=== PATIENT | female | born 1950 | race Caucasian/White ===

== ENCOUNTER → 2016-08-08 | Outpatient (CLI) | payer OTHER, MEDICARE ==
[~2016-08-08] MED LIST: BACK & BODY PA1 EACH PO; BACTRIM,SEPT1 TABLE1 PO; CARDIZEM CD,CA180 MG PO; COMPAZINE10 MG PO; COUMADIN6 MG PO; DILTIAZEM 24HR360 M1 PO; DULCOLAX10 MG PR; ELIQUIS5 MG PO; ENEMA133 M2 PR; LISINOPRIL10 MG PO; LISINOPRIL20 MG PO; LOVENOX120 MG/0.8 SC; MILK OF MAGNESI10 ML PO; NICOTINE PATCH1 EAC1 TD; SPIRIVA RESPIMAT4 GM IH; TRAMADOL HCL50 MG PO; TUBERSOL SQ; TYLENOL REGULA325 MG PO; VENTOLIN HFA18 GM IH
== END | disposition home or self-care (01) ==
LOC: RAD 08-05 13:00
DX: M51.17 Intervertebral disc disorders with radiculopathy, lumbosacral region (principal); M84.48XA Pathological fracture, other site, initial encounter for fracture
CPT/HCPCS: 72131

== ENCOUNTER 2016-08-22 12:28 | Emergency (ER) | payer OTHER, MEDICARE ==
[~2016-08-22] VITALS: Ht 162.6 cm; Wt 114.7 kg
[2016-08-22 13:44] LABS: INTER. NORMALIZED RATIO 1.1
[2016-08-22 21:05] VITALS: BP 112/74
== END 2016-08-22 21:06 | disposition home or self-care (01) ==
LOC: EME 12:28
PROVIDERS: Emergency Medicine
DX: T50.991A Poisoning by other drugs, medicaments and biological substances, accidental (unintentional), initial encounter (principal); C90.00 Multiple myeloma not having achieved remission; Z86.73 Personal history of transient ischemic attack (TIA), and cerebral infarction without residual deficits; Z87.891 Personal history of nicotine dependence
CPT/HCPCS: 80048; 85025 91; 85610; 85730; 93005; 99281; 99284; G0480

== ENCOUNTER 2017-05-02 18:07 | Inpatient (IN) | payer OTHER, MEDICARE ==
[~2017-05-02] VITALS: Ht 162.6 cm; Wt 106.0 kg
[2017-05-02 19:21] LABS: BASOPHIL COUNT 0.1 K/uL (0-0.1); EOSINOPHIL COUNT 0.4 K/uL (0-0.3); HEMATOCRIT 39.5 % (36.0-46.0); IMMATURE GRANULOCYTE (%) 0.5 % (0.0-0.7); MCH 30.8 PG (29.0-34.0); MCHC 32.4 G/DL (30.0-36.0); MEAN PLAT.VOLUME 9.9 uM^3 (9.5-12.4); MONOCYTE (%) 14.3 % (3-12); MONOCYTE COUNT 0.9 K/uL (0-0.8); NEUTROPHIL (%) 62.9 % (45-76); RBC DIS.WIDTH-CV 15.8 % (11.8-14.6); RBC DIS.WIDTH-SD 55.4 % (39-53); RED BLOOD COUNT 4.16 M/uL (3.80-5.20); WHITE BLOOD COUNT 6.4 K/uL (4.1-10.2)
[2017-05-02 19:31] LABS: PLATELET COUNT 163 K/uL (156-360)
[2017-05-02 19:33] LABS: PROTHROMBIN TIME 11.4 SEC (10.2-12.9)
[2017-05-02 19:38] LABS: CHLORIDE 108 mEq/L (99-109); POTASSIUM 3.9 mEq/L (3.7-5.4); SODIUM 143 mEq/L (136-147)
[2017-05-02 19:40] LABS: GLUCOSE 95 mg/dL (70-99)
[2017-05-02 19:42] LABS: ANION GAP 10 MEQ/L (2-14); TOTAL BILIRUBIN 0.3 mg/dL (0.0-1.0)
[2017-05-02 19:43] LABS: TROP-I INTERPRETATION NEGATIVE; TROPONIN-I < 0.01 ng/mL (0.0-0.30)
[2017-05-02 19:44] LABS: ALKALINE PHOSPHATASE 73 IU/L (3-129); GFR ESTIMATE (CALCULATED) > 59 mL/min/
[2017-05-02 19:45] LABS: UREA NITROGEN (BUN) 12 mg/dL (9-23)
[2017-05-02 19:46] LABS: DIRECT BILIRUBIN 0.1 mg/dL (0.0-0.3)
[2017-05-02] MEDS ORDERED: REVLIMID10 MG PO ×2 (21:50→21:52)
[2017-05-02] MEDS ORDERED: DIGOXIN125 MCG PO (21:51)
[2017-05-02] MEDS ORDERED: LISINOPRIL10 MG PO (21:51)
[2017-05-02 22:05] LABS: ADD MIUA? YES; BILIRUBIN NEGATIVE; BLOOD LARGE; COLOR STRAW ((YELLOW)); GLUCOSE (STRIP) NEGATIVE; KETONES NEGATIVE; LEUKOCYTES NEGATIVE; NITRITE NEGATIVE; PROTEIN (STRIP) NEGATIVE; SPECIFIC GRAVITY 1.012 (1.000-1.030); UROBILINOGEN 0.2 MG/DL (0.2-1.0)
[2017-05-02 22:10] LABS: BACTERIA NONE SEEN /HPF; EPITHELIAL CELLS RARE /HPF; MUCUS TRACE /LPF; RED BLOOD CELLS 15-20 /HPF (0-5); UCUL ADDED? NO; WHITE BLOOD CELLS 0-5 /HPF (0-5)
[2017-05-03 01:44] VITALS: BP 140/79
[2017-05-03 02:04] LABS: BICARBONATE 28.5 mEq/L (22-26); CARBOXY HGB 5.1 % (0-5); COMMENTS - BLOOD GASES C+; DEVICE NC; METHEMOGLOBIN 1.3 % (0-1.5); O2 FLOW 2 L/MIN; PCO2 46 mm Hg (35-45); PO2 73 mm Hg (80-100); SITE RR; TOTAL RESP RATE 20 resp/min
[2017-05-03 02:18] LABS: HDL CHOLESTEROL 41 MG/DL (Desirable>=50); LDL CHOLESTEROL 68 mg/dL (Desirable<100); NON-HDL CHOLESTEROL 86 mg/dL (Desirable<160); TOTAL CHOLESTEROL 127 mg/dL (Desirable<200); TRIGLYCERIDES 88 MG/DL (Normal: <150)
[2017-05-03 02:28] LABS: D-DIMER ELISA < 150.00 ng/mLDDU (<230)
[2017-05-03 07:35] LABS: Estimated Average Glucose 111 mg/dL (70-123); HEMOGLOBIN A1c (GLYCOHEMOGLOB) 5.5 % HGB (Below 5.7)
[2017-05-03 08:10] VITALS: BP 126/80
[2017-05-03 11:46] VITALS: BP 112/70
[2017-05-03 13:29] VITALS: BP 109/74
[2017-05-03 16:37] VITALS: BP 108/63
[2017-05-03 19:32] VITALS: BP 118/75
[2017-05-04] VITALS (7 sets, daily range): BP systolic 111–141; BP diastolic 68–95
[2017-05-04 06:00] LABS: HEMATOCRIT 42.5 % (36.0-46.0); MCH 30.8 PG (29.0-34.0); MCV 96.4 FL (83-99); MEAN PLAT.VOLUME 10.2 uM^3 (9.5-12.4); PLATELET COUNT 159 K/uL (156-360); RBC DIS.WIDTH-CV 15.5 % (11.8-14.6); RBC DIS.WIDTH-SD 55.6 % (39-53); RED BLOOD COUNT 4.41 M/uL (3.80-5.20); WHITE BLOOD COUNT 6.2 K/uL (4.1-10.2)
[2017-05-05 03:28] VITALS: BP 128/70
[2017-05-05 08:03] VITALS: BP 140/85
[2017-05-05 12:19] VITALS: BP 108/64
[2017-05-05] MEDS ORDERED: NICOTINE PATCH1 EAC2 TD (13:03)
[2017-05-05] MEDS ORDERED: PRAVASTATIN SOD40 MG PO (13:04)
[2017-05-05] MEDS ORDERED: ASPIR-LOW81 MG PO (13:04)
[2017-05-05] MEDS ORDERED: CYANOCOBALAM1000 MCG PO (13:04)
== END 2017-05-05 14:30 | DRG 64 ==
LOC: EME 18:07 → EDOF 23:56 → 5WEST 23:56 → ENRESERV 23:58 → 5WEST 05-03 01:31 → 5SOUTH 05-03 11:32 → 5WEST 05-03 11:32 → ENRESERV 05-03 11:55 → 5SOUTH 05-03 12:57
PROVIDERS: Emergency Medicine; Hospitalist
DX: I63.9 Cerebral infarction, unspecified (principal); R29.702 NIHSS score 2; I10 Essential (primary) hypertension; J44.1 Chronic obstructive pulmonary disease with (acute) exacerbation; I48.0 Paroxysmal atrial fibrillation; Z86.711 Personal history of pulmonary embolism; Z79.01 Long term (current) use of anticoagulants; Z91.19 Patient's noncompliance with other medical treatment and regimen; E66.01 Morbid (severe) obesity due to excess calories; E03.9 Hypothyroidism, unspecified; F17.200 Nicotine dependence, unspecified, uncomplicated; R09.02 Hypoxemia; R47.01 Aphasia; G93.41 Metabolic encephalopathy; C90.00 Multiple myeloma not having achieved remission; Z68.41 Body mass index [BMI] 40.0-44.9, adult; G25.0 Essential tremor; Z86.73 Personal history of transient ischemic attack (TIA), and cerebral infarction without residual deficits; Z82.49 Family history of ischemic heart disease and other diseases of the circulatory system; Z83.3 Family history of diabetes mellitus
CPT/HCPCS: 36600; 70450; 70551; 80048; 80061; 80076; 80162; 81003; 82140; 82607; 82803; 83036; 83605; 83880; 84443; 84484; 85025; 85027; 85379; 85610; 85730; 92523 GN; 93005; 93306; 93880; 93970; 94799; 99202; 99281; 99285; G0378; G8978 GP CJ; G8980 GP CI

== ENCOUNTER 2017-05-05 10:51 | Inpatient (IN) | payer OTHER, MEDICARE ==
[~2017-05-05] VITALS: Ht 162.6 cm; Wt 104.5 kg
[~2017-05-05 10:51] MED LIST changes: +DIGOXIN125 MCG PO; +REVLIMID10 MG PO
[2017-05-05] MEDS ORDERED: NICOTINE PATCH1 EAC2 TD (13:03)
[2017-05-05] MEDS ORDERED: CYANOCOBALAM1000 MCG PO (13:04)
[2017-05-05] MEDS ORDERED: ASPIR-LOW81 MG PO (13:04)
[2017-05-05] MEDS ORDERED: PRAVASTATIN SOD40 MG PO (13:04)
[2017-05-05 14:48] VITALS: BP 116/64
[2017-05-05 23:15] VITALS: BP 114/67
[2017-05-06 05:45] VITALS: BP 139/84
[2017-05-06 06:34] LABS: HEMATOCRIT 37.5 % (36.0-46.0); MCH 30.2 PG (29.0-34.0); MCV 94.5 FL (83-99); MEAN PLAT.VOLUME 9.7 uM^3 (9.5-12.4); PLATELET COUNT 152 K/uL (156-360); RBC DIS.WIDTH-CV 15.1 % (11.8-14.6); RBC DIS.WIDTH-SD 52.4 % (39-53); RED BLOOD COUNT 3.97 M/uL (3.80-5.20); WHITE BLOOD COUNT 5.8 K/uL (4.1-10.2)
[2017-05-06 06:59] LABS: ALKALINE PHOSPHATASE 57 IU/L (3-129); ANION GAP 8 MEQ/L (2-14); CHLORIDE 109 MEQ/L (99-109); GFR ESTIMATE (CALCULATED) > 59 mL/min/; GLUCOSE 93 mg/dL (70-99); POTASSIUM 3.9 MEQ/L (3.7-5.4); SAMPLE HEMOLYSIS CHECK 0; SAMPLE ICTERIC CHECK 0; SAMPLE LIPEMIA CHECK 0; SODIUM 142 MEQ/L (136-147); TOTAL BILIRUBIN 0.5 MG/DL (0.0-1.0); UREA NITROGEN (BUN) 16 mg/dL (9-23)
[2017-05-06 14:40] VITALS: BP 104/73
[2017-05-07 06:03] VITALS: BP 107/67
[2017-05-07 15:48] VITALS: BP 102/59
[2017-05-08 05:00] VITALS: BP 116/65
[2017-05-08 07:40] VITALS: BP 135/81
[2017-05-08 15:25] VITALS: BP 103/59
[2017-05-08] MEDS ORDERED: DILTIAZEM 24HR360 M1 PO (18:14)
[2017-05-08] MEDS ORDERED: DIGOXIN125 MCG PO (18:14)
[2017-05-08] MEDS ORDERED: ELIQUIS5 MG PO (18:14)
[2017-05-08] MEDS ORDERED: LISINOPRIL10 MG PO (18:14)
[2017-05-08] MEDS ORDERED: NICOTINE PATCH1 EAC2 TD (18:14)
[2017-05-08] MEDS ORDERED: PRAVASTATIN SOD40 MG PO (18:14)
[2017-05-08] MEDS ORDERED: ASPIR-LOW81 MG PO (18:14)
[2017-05-09 05:25] VITALS: BP 117/69
[2017-05-09 07:05] VITALS: BP 122/84
== END 2017-05-09 14:51 | disposition home or self-care (01) | DRG 57 ==
LOC: 3WEST 10:51
PROVIDERS: Physical Medicine & Rehabilitation Pain Medicine
PROC: F07M0ZZ Range of Motion and Joint Mobility Treatment of Musculoskeletal System - Whole Body (ICD-10-PCS; principal; 2017-05-05)
DX: I69.318 Other symptoms and signs involving cognitive functions following cerebral infarction (principal); C90.00 Multiple myeloma not having achieved remission; F05 Delirium due to known physiological condition; E66.01 Morbid (severe) obesity due to excess calories; F17.210 Nicotine dependence, cigarettes, uncomplicated; I10 Essential (primary) hypertension; I48.2 Chronic atrial fibrillation; E53.8 Deficiency of other specified B group vitamins; E55.9 Vitamin D deficiency, unspecified; I73.9 Peripheral vascular disease, unspecified; J44.9 Chronic obstructive pulmonary disease, unspecified; Z60.2 Problems related to living alone; I65.23 Occlusion and stenosis of bilateral carotid arteries; Z86.711 Personal history of pulmonary embolism; Z86.718 Personal history of other venous thrombosis and embolism; Z68.39 Body mass index [BMI] 39.0-39.9, adult; Z79.82 Long term (current) use of aspirin; Z79.01 Long term (current) use of anticoagulants; Z79.51 Long term (current) use of inhaled steroids; Z80.1 Family history of malignant neoplasm of trachea, bronchus and lung; Z82.49 Family history of ischemic heart disease and other diseases of the circulatory system; Z83.3 Family history of diabetes mellitus
CPT/HCPCS: 80053; 85027; 92523 GN; 93306; 97112 GO; 97530 GP; 97532 GN